=== PATIENT | male | born 1970 | race Caucasian/White ===

== ENCOUNTER 2016-10-09 18:38 | Emergency (ER) | payer OTHER ==
[2016-10-09] MEDS ORDERED: TDAP VACCINE 0.5 ML SUS IM ONE ×2 (18:51→19:09)
[2016-10-09] MEDS ORDERED: LIDOCAINE 1% W/EPI MPF 10 ML SOL ONE (18:55)
[2016-10-09] MEDS ORDERED: LIDOCAINE 1% W/EPI MPF 10 ML SOL INFIL ONE (18:55)
[2016-10-09 19:07] VITALS: BP 125/93; PULSE 82; RESP 20; TEMP 98.3; O2SAT 100
[2016-10-09] MEDS ORDERED: BACITRACIN 500 U/GM OIN TOP ONE ×2 (19:30→19:44)
== END 2016-10-09 19:47 | disposition home or self-care (01) | DRG 605 ==
LOC: ED 18:38
DX: S61.412A Laceration without foreign body of left hand, initial encounter (principal); W26.8XXA Contact with other sharp object(s), not elsewhere classified, initial encounter
CPT/HCPCS: 90715; 99284